=== PATIENT | female | born 1955 | race Asian ===

== ENCOUNTER 2016-08-22 06:56 | Day surgery (SDC) | payer OTHER ==
[2016-08-22] VITALS (13 sets, daily range): BP systolic 116–152; BP diastolic 48–80; PULSE 54–100; RESP 17–26; Ht 154.9 cm; Wt 53.8 kg
[~2016-08-22] VITALS: Ht 154.9 cm; Wt 53.8 kg
[~2016-08-22 06:56] MED LIST: BUPIVACAINE 0.25% (MPF) 30 ML INJ ONE; CEFAZOLIN 2 GM/50 ML (PMX) 50 ML IVPB ONE; OMEP40CA6 PO; SIMV40TA3 PO; SOD CHLORIDE 0.9% 1,000 ML IV SCH
[2016-08-22] MEDS ORDERED: BUPIVACAINE 0.25% (STERILE-PAK) 30 ML INJ INJ ONE (06:57)
[2016-08-22] MEDS ORDERED: LIDOCAINE 2% (SDV) 5 ML INJ ONE (07:00)
[2016-08-22] MEDS ORDERED: FENTAnyl 50 MCG/ML VIAL ONE ×2 (07:16→08:33)
[2016-08-22] MEDS ORDERED: MIDAZOLAM 1 MG/ML 2 ML INJ ONE (07:16)
[2016-08-22] MEDS ORDERED: PROPOFOL 20 ML ONE (07:17)
[2016-08-22] MEDS ORDERED: PHENYLephrine (100 MCG/ML) 5ML SYG ONE (07:37)
[2016-08-22] MEDS ORDERED: ONDANSETRON 4 MG INJ ONE (07:37)
[2016-08-22] MEDS ORDERED: SUCCINYLCHOLINE CHLORIDE 100 MG/5 ML SYG IV ONE (07:38)
[2016-08-22] MEDS ORDERED: ROCURONIUM 50 MG INJ ONE (07:38)
[2016-08-22] MEDS ORDERED: METOCLOPRAMIDE 10 MG INJ ONE (07:38)
[2016-08-22] MEDS ORDERED: DEXAMETHASONE 4 MG/ML 1 ML INJ ONE (07:38)
--- NOTE | 2016-08-22 07:38 | HPN ---
Date/Time of Note Date/Time of Note DATE: 08/22/16 TIME: 07:38 Interval H&P Admission Note Pt. seen H&P reviewed: No system changes PEDRO MENDIETA MD Aug 22, 2016 07:38
[2016-08-22] MEDS ORDERED: ALPR0.254 PO (07:39)
[2016-08-22] MEDS ORDERED: hydrALAzine 20 MG INJ ONE (08:20)
[2016-08-22] MEDS ORDERED: GLYCOPYRROLATE 0.4 MG INJ ONE (08:21)
[2016-08-22] MEDS ORDERED: NEOSTIGMINE 3 MG/3 ML SYRINGE ONE (08:21)
[2016-08-22] MEDS ORDERED: HYDROmorphONE (0.2 MG/ML) 10ML SYG IV PRN (09:00)
[2016-08-22] MEDS ORDERED: ONDANSETRON 4 MG INJ IV PRN ×2 (09:00)
[2016-08-22] MEDS ORDERED: morphine 2 MG INJ IV PRN (09:00)
[2016-08-22] MEDS ORDERED: HYDROCODONE/APAP (5/325) TAB PO PRN ×2 (09:00)
--- NOTE | 2016-08-22 09:00 | OPR ---
Date/Time of Note Date/Time of Note DATE: 08/22/16 TIME: 08:55 Operative Report Procedure Date: Aug 22, 2016 Preoperative Diagnosis Cholelithiasis/chronic cholecystitis Postoperative Diagnosis Cholelithiasis/chronic cholecystitis Operation Performed Laparoscopic cholecystectomy Surgeon: PEDRO MENDIETA MD Anesthesia: general Anesthesiologist: LEE SÁNCHEZ MD Estimated Blood Loss: minimal Specimens Gallbladder Complications: None Pt Condition Post Procedure: stable Disposition: PACU Indications The patient is a 61-year-old female who presented to the office with complaints of intermittent right upper quadrant abdominal pain for the past year. The patient had clinical signs and symptoms of chronic cholecystitis and biliary colic which was confirmed via an ultrasound which confirmed the presence of gallstones. The patient was scheduled for laparoscopic cholecystectomy; possible open as definitive treatment to prevent further sequelae of gallstone disease which include but are not limited to: Gangrenous cholecystitis, choledocholithiasis, gallstone pancreatitis, ascending cholangitis, etc. All risks and benefits of the procedure including but not limited to: Wound infection, excessive bleeding, common bile duct injury, postoperative biliary leak, retained common bile duct stone, injury to intra-abdominal organs, conversion to open procedure, possible need for subsequent surgeries, etc. were all explained to the patient in full detail. She fully understood and wished to proceed with the procedure. Informed consent was therefore obtained. Operative\Procedure Findings Adhesions of the omentum and hepatic flexure of colon to the gallbladder. Chronic scarring and changes of chronic cholecystitis. Cholelithiasis. Procedure Description The patient was brought to the operating room and placed supine on the operating table. Bilateral sequential compression devices were placed on both lower extremities. A dose of broad-spectrum perioperative intravenous antibiotics was given. After the induction of smooth general endotracheal anesthesia the patient's abdomen was prepped and draped in the standard surgical fashion. After performance of the surgical timeout a 5 mm incision was made in the inferior umbilicus and a Veress needle was used to access the intra- abdominal cavity atraumatically. Pneumoperitoneum was then obtained and the Veress needle was exchanged for a 5 mm trocar through which a 5 mm laparoscope was placed. Three further working ports were then placed a 12 mm port in the sub -xiphoid region and two 5 mm ports in the right upper quadrant. All port sites were anesthetized with 0.25% Marcaine with epinephrine prior to incision. Diagnostic laparoscopy showed dense adhesions to the area of the gallbladder in the right upper quadrant. The gallbladder could not be visualized. Using gentle retraction with atraumatic graspers and a combination of blunt dissection and Bovie electrocautery the adhesions were taken down. The hepatic flexure of the colon and the duodenum were noted to be adhered to the gallbladder. These adhesions were taken down. The gallbladder was then able to be grasped and retracted superiorly and laterally exposing the area of Escobar's pouch. Dissection was begun in this area using a combination of blunt dissection and hook electrocautery. There was a lot of chronic inflammatory scar tissue in this area. Mobilization of the lateral and medial aspects of the gallbladder was done in order to gain better mobility and exposure. The cystic duct was identified as it entered straight into the neck of the gallbladder. It was dissected free of surrounding tissues and clipped proximally and distally x 3 and transected using EndoShears. Dissection was then continued posteriorly. The cystic artery was identified and dissected free of surrounding tissues. It too was clipped proximally and distally x 3 and transected using EndoShears. The gallbladder was then dissected off the liver bed using electrocautery. There was chronic scarring of the gallbladder to the liver bed. Once completely free the gallbladder was placed in an Endo Catch bag and withdrawn through the subxiphoid port site and passed off the field as specimen. Hemostasis was then inspected for and noted to be adequate. The abdomen was then irrigated with several liters of warm normal saline and the irrigant returned crystal clear. The fascia of the subxiphoid port site was then reapproximated using an endo-close device. Pneumoperitoneum was then released and all remaining trochars were withdrawn under direct vision. The subcutaneous tissues were irrigated with more warm normal saline and further local anesthesia was applied around the skin of the incision sites. The skin was then reapproximated using 4-0 Monocryl sutures in subcuticular fashion. The incisions were cleaned and Dermabond was applied to the incisions and the patient was awoken from anesthesia and transported to the recovery room in stable condition. All counts were correct at the end of the case x 2. PEDRO MENDIETA MD Aug 22, 2016 09:00
== END 2016-08-22 12:02 | disposition home or self-care (01) ==
LOC: SDS 06:56
PROVIDERS: ATTEND Surgery
DX: K80.10 Calculus of gallbladder with chronic cholecystitis without obstruction (principal)
CPT/HCPCS: 47562; 88304; J0360; J1100; J1170; J2250; J2405; J2710; J2765; J3010; J7999; Z7512; Z7610; J2370

== ENCOUNTER 2018-08-21 13:12 | Day surgery (SDC) | payer OTHER ==
[~2018-08-21] VITALS: Ht 154.9 cm; Wt 50.4 kg
[~2018-08-21 13:12] MED LIST changes: +ALPR0.254 PO; -BUPIVACAINE 0.25% (MPF) 30 ML INJ ONE; -CEFAZOLIN 2 GM/50 ML (PMX) 50 ML IVPB ONE; -SOD CHLORIDE 0.9% 1,000 ML IV SCH
[2018-08-21] MEDS ORDERED: METOCLOPRAMIDE 10 MG INJ ONE (15:28)
[2018-08-21] MEDS ORDERED: METOCLOPRAMIDE 10 MG INJ IV ONE (15:30)
[2018-08-21 15:39] VITALS: Ht 154.9 cm; Wt 50.4 kg
--- NOTE | 2018-08-21 16:44 | PREAC ---
Date/Time of Note Date/Time of Note DATE: 08/21/18 TIME: 16:43 Anesthesia Eval and Record Evaluation Time Pre-Procedure Interview DATE: 08/21/18 TIME: 16:43 Age 63 Sex female NPO: 8 hrs Preoperative diagnosis gl bleed Planned procedure egd colonoscopy Past Medical History Past Medical History: Includes Cardio: Dyslipidemia GI: GERD Psych: Anxiety Surgery & Anesthesia Issues No known issue Meds Anticoagulation: No Beta Cassie within 24 hr: No Reason Beta Cassie not given: Pt. not on B-Cassie Reported Medications Alprazolam* (Alprazolam*) 0.25 Mg Tablet, 0.25 MG PO HS PRN for ANXIETY, #30 08/22/16 Omeprazole* (Omeprazole*) 40 Mg Capsule.dr, 40 MG PO DAILY, CAP 02/28/14 Simvastatin (Simvastatin) 40 Mg Tablet, 40 MG PO HS, TAB 02/28/14 Meds reviewed: Yes Allergies Coded Allergies: No Known Allergy (Unverified , 02/27/14) Allergies Reviewed: Yes Labs/Studies Labs Reviewed: Reviewed by anesthesiologist test: N/A Pre-procedure Exam Airway: Adequate mouth opening, Adequate thyromental dist Mallampati: Mallampati II Teeth: Normal Lung: Normal Heart: Normal ASA Physical Status ASA physical status: 2 Emergency: None Pre-operative Attestations Prior to commencing anesthesia and surgery, the patient was re-evaluated, there was verification of: *The patient's identity *The results of appropriate recent lab work and preoperative vital signs *The above evaluation not changing prior to induction *Anesthetic plan, risk benefits, alternative and complications discussed with patient/family; questions answered; patient/family understands, accepts and wishes to proceed. LIZZIE OJEDA DO Aug 21, 2018 16:44
[2018-08-21] MEDS ORDERED: PROPOFOL 20 ML ONE (16:46)
[2018-08-21] MEDS ORDERED: LIDOCAINE 2% (SDV) 5 ML INJ ONE (16:47)
[2018-08-21] MEDS ORDERED: FENTAnyl 50 MCG/ML VIAL ONE (16:47)
[2018-08-21] MEDS ORDERED: ETOMIDATE 20 MG INJ ONE (16:47)
[2018-08-21 16:50] VITALS: BP 156/70; PULSE 48; RESP 24
[2018-08-21 17:50] VITALS: BP 149/71; PULSE 52; RESP 22
--- NOTE | 2018-08-23 11:07 | PAC ---
Date/Time of Note Date/Time of Note DATE: 08/23/18 TIME: 11:06 Post-Anesthesia Notes Post-Anesthesia Note Last documented vital signs Vital Signs Date Temp Pulse Resp B/P (MAP) Pulse Ox O2 O2 Flow FiO2 Time Delivery Rate 08/21/18 98 55 20 140/80 99 Room Air 1830 08/21/18 97.3 16:50 Activity: WNL Respiratory function: WNL Cardiovascular function: WNL Mental status: Baseline Pain reasonably controlled: Yes Hydration appropriate: Yes Nausea/Vomiting absent: Yes LIZZIE OJEDA DO Aug 23, 2018 11:07
== END 2018-08-21 17:48 | disposition home or self-care (01) ==
LOC: GIL 13:12
PROVIDERS: ATTEND Internal Medicine Gastroenterology
DX: R19.5 Other fecal abnormalities (principal); K64.8 Other hemorrhoids; K20.8 Other esophagitis; K29.70 Gastritis, unspecified, without bleeding
CPT/HCPCS: 43239; 45378; 88305; 88312; J2765; J3010; Z7610